=== PATIENT | male | born 1970 | race Caucasian/White ===

== ENCOUNTER → 2016-09-20 | Outpatient (CLI) | payer MEDICAID ==
[~2016-09-20] MED LIST: ALBU6.7H INH; ALBU8.5H5 INH; ASCO500T29 PO; CYCL-259 PO; DIAZ5TAB4 PO; FAMO20TA37 PO; HYDR-3144 PO; HYDR25TA11 PO; IRBE300T16 PO; LORA1TAB PO; OXYC-229 PO; OXYC10TA6 PO; TEST200V3 IM; TRAM50TA2 PO; TRAZ50TA18 PO
== END | disposition home or self-care (01) ==
LOC: RAD 14:43
PROVIDERS: ATTEND Physician Assistant
DX: R07.9 Chest pain, unspecified (principal); C64.9 Malignant neoplasm of unspecified kidney, except renal pelvis; N40.1 Benign prostatic hyperplasia with lower urinary tract symptoms
CPT/HCPCS: 71020

== ENCOUNTER → 2017-10-17 | Outpatient (CLI) | payer MEDICAID ==
[~2017-10-17] MED LIST changes: +ASCO-90 PO; -ASCO500T29 PO; -HYDR-3144 PO; +HYDR-3245 PO; -OXYC-229 PO; +OXYC-307 PO; +TRAZ-136 PO; -TRAZ50TA18 PO
== END | disposition home or self-care (01) ==
LOC: RAD 15:25
PROVIDERS: ATTEND Family Medicine
DX: M54.9 Dorsalgia, unspecified (principal)
CPT/HCPCS: 72072